=== PATIENT | male | born 1975 | race Two or more races ===

== ENCOUNTER 2019-02-08 10:58 | Emergency (ER) | payer SELFPAY ==
[~2019-02-08] VITALS: Ht 170.2 cm; Wt 86.2 kg
[2019-02-08 11:21] VITALS: BP 136/93
[2019-02-08] MEDS ORDERED: cefTRIAXone SOD 1,000 MG VL IM ONE (12:45)
[2019-02-08] MEDS ORDERED: TETANUS-DIPTH-ACEL PERTUSSIS 0.5ML SYRG IM ONE (12:45)
[2019-02-08] MEDS ORDERED: HYDROcodone-ACET 10/325MG TAB PO ONE (12:45)
== END 2019-02-08 13:29 | disposition home or self-care (01) ==
LOC: ER 11:03 → EDBD 11:03 → ER 13:29
DX: S92.532A Displaced fracture of distal phalanx of left lesser toe(s), initial encounter for closed fracture (principal); W22.8XXA Striking against or struck by other objects, initial encounter; Y93.89 Activity, other specified; Y99.8 Other external cause status; Y92.89 Other specified places as the place of occurrence of the external cause
CPT/HCPCS: 73630; 90471; 90715; 96372; 99283; J0696; L3260

== ENCOUNTER 2024-06-08 14:29 | Inpatient (IN) | payer OTHER ==
[~2024-06-08] VITALS: Ht 172.7 cm; Wt 89.7 kg
[2024-06-08 15:19] LABS: Basophils # (auto) 0 10 ^3/uL (0-0.2); Basophils % (auto) 0.3 % (0.0-2.0); Eosinophils # (auto) 0 10 ^3/uL (0-0.8); Eosinophils % (auto) 0.1 % (0.0-7.0); Hematocrit 43.8 % (41.0-53.0); Hemoglobin 15.3 g/dL (13.5-17.5); Lymphocytes # (auto) 1.3 10 ^3/uL (0.4-5.4); Lymphocytes % (auto) 6.8 % (10.0-50.0); Mean Corpuscular Hemoglobin 29.3 pg (28.0-32.0); Mean Corpuscular Volume 83.8 fL (80.0-100.0); Monocytes # (auto) 0.9 10 ^3/uL (0-1.3); Monocytes % (auto) 4.5 % (0.0-12.0); Neutrophils # (auto) 16.9 10 ^3/uL (1.6-8.6); Neutrophils % (auto) 88.3 % (37.0-80.0); Nucleated Red Blood Cells % 0.1 %; Red Blood Cells 5.23 10^6/uL (4.5-5.90); Red Cell Distribution Width 14.1 % (11.8-14.3); White Blood Cell 19.2 10^3/uL (4.4-10.8)
[2024-06-08] MEDS: SODIUM CHLORIDE 0.9% 1,000 ML IV ONE ×2 (15:21→18:15)
[2024-06-08 15:25] LABS: Urine Bacteria FEW /hpf (None Seen); Urine Blood 2+ /uL (Negative); Urine Budding Yeast OCCASIONAL /hpf (None Seen); Urine Clarity Clear (Clear); Urine Color Yellow (Yellow); Urine Mucus FEW (None Seen); Urine Protein, UAD 1+ (Negative); Urine Specific Gravity 1.039 (1.001-1.035); Urine Urobilinogen OVER mg/dL (Negative); Urine WBC 2 /hpf (0 - 3)
[2024-06-08 16:49] LABS: Chloride 103 mmol/L (98-107); Sodium 136 mmol/L (136-145)
[2024-06-08 16:52] LABS: Anion Gap 8 (5-15); Calcium 9.1 mg/dL (8.7-10.4); Carbon Dioxide 25 mmol/L (20-30)
[2024-06-08 16:57] LABS: Glucose 140 mg/dL (74-106)
[2024-06-08 16:58] LABS: BUN/Creatinine Ratio 11.2 (10.0-20.0); Blood Urea Nitrogen 11 mg/dL (9-23); Potassium 3.9 mmol/L (3.5-5.1)
[2024-06-08] MEDS: cefTRIAXone 1GM/50ML D5W 50 ML IV ONE ×2 (17:00→18:15)
[2024-06-08] MEDS ORDERED: ONDANSETRON HCL 4 MG/2 ML VIAL IV PRN ×2 (17:00→18:45)
[2024-06-08] MEDS: KETOROLAC TROMETH 30 MG/ML 1ML VIAL IV ONE (17:00)
[2024-06-08] MEDS: metroNIDAZOLE 500MG/100ML 100 ML IV ONE ×2 (18:29)
[2024-06-08] MEDS ORDERED: ACETAMINOPHEN IV 1000 MG/100ML (10MG/ML) IV PRN (18:30)
[2024-06-08 19:11] LABS: INR 1.19 (0.9-1.15); Prothrombin Time 12.5 sec (9.3-11.8)
[2024-06-08 19:30] VITALS: PULSE 99; RESP 18; O2SAT 97
[2024-06-08] MEDS: SODIUM CHLORIDE 0.9% 1,000 ML IV SCH (19:30)
[2024-06-08] MEDS: ACETAMINOPHEN IV 100 ML IV ONE (20:13)
[2024-06-08 20:50] VITALS: BP 112/68; PULSE 78; RESP 20; TEMP 100; O2SAT 97
[2024-06-08] MEDS: KETOROLAC TROMETH 30 MG/ML 1ML VIAL IV PRN (21:22)
[2024-06-08] MEDS: metroNIDAZOLE 500MG/100ML 100 ML IV SCH (22:00)
[2024-06-08] MEDS: MORPHINE SULFATE INJ 2 MG/ml SYRG IV PRN (23:52)
[2024-06-09] VITALS (11 sets, daily range): BP systolic 101–138; BP diastolic 63–84; PULSE 87–135; RESP 17–20; TEMP 97.2–101; O2SAT 92–98
[2024-06-09] MEDS: PIPERACILLIN-TAZOB 3.375GM 100 ML IV ONE (00:24)
[2024-06-09] MEDS: SODIUM CHLORIDE 0.9% 1,000 ML IV SCH (00:25)
[2024-06-09] MEDS: HYDROmorphone HCL 2 MG/ML VL/or syr IV ONE (02:34)
[2024-06-09] MEDS: ACETAMINOPHEN 650 MG RECT SUPP PR PRN (03:00)
[2024-06-09] MEDS ORDERED: LACTATED RINGER'S 1,000 ML IV ONE (03:15)
[2024-06-09 04:04] LABS: Basophils # (auto) 0 10 ^3/uL (0-0.2); Basophils % (auto) 0.2 % (0.0-2.0); Eosinophils # (auto) 0 10 ^3/uL (0-0.8); Hematocrit 41.6 % (41.0-53.0); Hemoglobin 14.8 g/dL (13.5-17.5); Lymphocytes # (auto) 0.6 10 ^3/uL (0.4-5.4); Lymphocytes % (auto) 11.6 % (10.0-50.0); Mean Corpuscular Hemoglobin 29.2 pg (28.0-32.0); Mean Corpuscular Hgb Conc. 35.6 g/dL (32.0-36.0); Mean Corpuscular Volume 82.2 fL (80.0-100.0); Monocytes # (auto) 0.3 10 ^3/uL (0-1.3); Monocytes % (auto) 5.2 % (0.0-12.0); Nucleated Red Blood Cells % 0.1 %; Red Blood Cells 5.06 10^6/uL (4.5-5.90); Red Cell Distribution Width 14.2 % (11.8-14.3); White Blood Cell 4.8 10^3/uL (4.4-10.8)
[2024-06-09 04:24] LABS: Alanine Aminotransferase 49 U/L (7-40); Albumin 3.6 g/dL (3.2-4.8); Alkaline Phosphatase 105 U/L (46-116); Anion Gap 9 (5-15); Aspartate Aminotransferase 53 U/L (13-40); BUN/Creatinine Ratio 13.8 (10.0-20.0); Blood Urea Nitrogen 17 mg/dL (9-23); Calcium 8.5 mg/dL (8.7-10.4); Carbon Dioxide 22 mmol/L (20-30); Chloride 108 mmol/L (98-107); Glucose 118 mg/dL (74-106); Potassium 3.2 mmol/L (3.5-5.1); Sodium 139 mmol/L (136-145)
[2024-06-09] MEDS: LIDOCAINE W/ EPINEPHRINE 1% 20ML VIAL ONE (07:08)
[2024-06-09] MEDS: BUPIVACAINE 0.25% INJ 50ML VIAL ONE (07:08)
[2024-06-09] MEDS: LIDOCAINE 2% JELLY 11ml (GLYDO) ONE (07:20)
[2024-06-09] MEDS: SUCCINYLCHOLINE CHLORIDE 20 MG/ML 10ML VIAL IV ONE (07:33)
[2024-06-09] MEDS: PIPERACILLIN-TAZOB 3.375GM 100 ML IV SCH (07:40)
[2024-06-09] MEDS ORDERED: cefTRIAXone 1GM/50ML D5W 50 ML IV SCH (09:00)
[2024-06-09] MEDS: LACTATED RINGER'S 1,000 ML IV SCH (09:00)
[2024-06-09] MEDS: POTASSIUM CHLORIDE 20 MEQ in D5W/LACTATED RINGERS 1,000 ML IV SCH (09:00)
[2024-06-09] MEDS ORDERED: HYDROmorphone HCL 2 MG/ML VL/or syr IV PRN (09:15)
[2024-06-09] MEDS: ONDANSETRON HCL 4 MG/2 ML VIAL IV ONE (09:15)
[2024-06-09] MEDS ORDERED: MORPHINE SULFATE 4 MG/ML SYR/VIAL IV PRN (09:15)
[2024-06-09] MEDS ORDERED: ePHEDrine SULFATE 50 MG/ML AMP IV PRN (09:15)
[2024-06-09] MEDS ORDERED: MIDAZOLAM HCL 2MG/2ML 2ml VIAL (1mg/ml) IV PRN (09:15)
[2024-06-09] MEDS: PANTOPRAZOLE 40 MG/10 ML VIAL INJ IV SCH (10:00)
[2024-06-09] MEDS ORDERED: ENOXAPARIN SOD 40 MG/0.4 ML SYRINGE SC SCH (10:00)
[2024-06-09] MEDS: ACETAMINOPHEN 325 MG TAB PO PRN (12:42)
[2024-06-09] MEDS: metroNIDAZOLE 500 MG TAB PO SCH (14:16)
[2024-06-09] MEDS ORDERED: ROCURONIUM 10MG/ML 10ML VIAL IV ONE (14:41)
[2024-06-10] VITALS (8 sets, daily range): BP systolic 112–146; BP diastolic 73–80; PULSE 77–117; RESP 16–21; TEMP 97.2–99.3; O2SAT 93–96
[2024-06-10 06:59] LABS: Basophils # (auto) 0 10 ^3/uL (0-0.2); Eosinophils # (auto) 0 10 ^3/uL (0-0.8); Hematocrit 36.7 % (41.0-53.0); Lymphocytes # (auto) 0.8 10 ^3/uL (0.4-5.4); Lymphocytes % (auto) 6.9 % (10.0-50.0); Mean Corpuscular Hemoglobin 29.7 pg (28.0-32.0); Mean Corpuscular Hgb Conc. 35.4 g/dL (32.0-36.0); Mean Corpuscular Volume 83.8 fL (80.0-100.0); Monocytes # (auto) 0.5 10 ^3/uL (0-1.3); Monocytes % (auto) 4.4 % (0.0-12.0); Neutrophils # (auto) 10.7 10 ^3/uL (1.6-8.6); Neutrophils % (auto) 88.7 % (37.0-80.0); Red Blood Cells 4.38 10^6/uL (4.5-5.90); Red Cell Distribution Width 14.3 % (11.8-14.3); White Blood Cell 12.1 10^3/uL (4.4-10.8)
[2024-06-10 11:36] LABS: Alanine Aminotransferase 31 U/L (7-40); Albumin 3.7 g/dL (3.2-4.8); Alkaline Phosphatase 83 U/L (46-116); Anion Gap 8 (5-15); Aspartate Aminotransferase 20 U/L (13-40); BUN/Creatinine Ratio 13.9 (10.0-20.0); Blood Urea Nitrogen 11 mg/dL (9-23); Calcium 8.9 mg/dL (8.7-10.4); Carbon Dioxide 23 mmol/L (20-30); Chloride 106 mmol/L (98-107); Glucose 171 mg/dL (74-106); Potassium 3.6 mmol/L (3.5-5.1); Sodium 137 mmol/L (136-145)
[2024-06-10 11:37] LABS: Bilirubin, Total 1.6 mg/dL (0.2-1.0)
[2024-06-10] MEDS: MORPHINE SULFATE 4 MG/ML SYR/VIAL IV PRN (13:09)
[2024-06-11] VITALS (8 sets, daily range): BP systolic 127–151; BP diastolic 74–85; PULSE 88–107; RESP 18–21; TEMP 97.5–99; O2SAT 88–98
[2024-06-12 05:00] VITALS: BP 134/77; PULSE 82; RESP 23; TEMP 98.6; O2SAT 97
[2024-06-12 08:00] VITALS: PULSE 66; PULSE 67; RESP 20; O2SAT 96
[2024-06-12 09:00] VITALS: BP 134/81; PULSE 82; RESP 20; TEMP 98.6; O2SAT 96
[2024-06-12] MEDS ORDERED: METR-344 PO (12:33)
[2024-06-12] MEDS ORDERED: LEVO500T91 PO (12:33)
[2024-06-12] MEDS ORDERED: HYDR-4902 PO (12:33)
[2024-06-12 13:00] VITALS: BP 147/84; PULSE 84; RESP 20; TEMP 98.6; O2SAT 96
[2024-06-12 13:08] VITALS: BP 134/85; PULSE 67; RESP 20; TEMP 98; O2SAT 96
== END 2024-06-12 14:42 | disposition home or self-care (01) | DRG 233 ==
LOC: ER 14:29 → OVERFLOW 17:02 → WEST WING 06-09 02:05 → TELE-WESTW 06-09 04:00
PROVIDERS: ADMIT Nurse Practitioner Family; ATTEND Family Medicine
PROC: 0W9G30Z Drainage of Peritoneal Cavity with Drainage Device, Percutaneous Approach (ICD-10-PCS; 2024-06-09)
PROC: 0DTJ0ZZ Resection of Appendix, Open Approach (ICD-10-PCS; principal; 2024-06-09 07:42)
DX: K35.32 Acute appendicitis with perforation, localized peritonitis, and gangrene, without abscess (principal); N17.0 Acute kidney failure with tubular necrosis; E86.0 Dehydration; Z79.899 Other long term (current) drug therapy
CPT/HCPCS: 36415; 71045; 74176; 80048; 80053; 80320; 81001; 83605; 85025; 85610; 86850; 86900; 86901; 87040; 87070; 87075; 87077; 87186; 87205; 93005; G0378; J0131; J0330; J1100; J1885; J2405; J2470; J2543; J3490